=== PATIENT | male | born 1970 | race Caucasian/White ===

== ENCOUNTER → 2024-09-04 10:08 | Outpatient (REF) | payer BC, SELFPAY | LOC: RAD 10:08 | PROVIDERS: ATTENDING PHYSICIAN Surgery Vascular Surgery; FAMILY PHYSICIAN Internal Medicine | DX: I71.40 Abdominal aortic aneurysm, without rupture, unspecified (principal); I77.1 Stricture of artery | CPT/HCPCS: 76770; 93923 ==

== ENCOUNTER → 2024-09-08 15:50 | Outpatient (REF) | payer BC, SELFPAY | LOC: RAD 15:50 | PROVIDERS: ATTENDING PHYSICIAN Surgery Vascular Surgery; FAMILY PHYSICIAN Internal Medicine | DX: I77.1 Stricture of artery (principal); I71.40 Abdominal aortic aneurysm, without rupture, unspecified | CPT/HCPCS: 71275; Q9967 ==